=== PATIENT | female | born 1985 | race American Indian/Alaskan Native ===

== ENCOUNTER 2017-06-26 05:45 | Inpatient (IN) | payer MEDICAID ==
--- NOTE | 2017-06-25 21:55 | History and Physical Report ---
History of Present Illness Date of examination: 06/23/17 Chief complaint: Repeat delivery History of present illness: Past History : 5 Term Births: 3 Premature Births: 1 Living Children: 4 Para: 4 Prev : 1 # 1 Delivery date: 1999 Weeks Gestation: 32w labor: no Delivery type: Delivery location: [facility] Sex: Female weight: 5#12 Comments: abruption # 2 Delivery date: 2000 Weeks Gestation: term labor: no [place] [facility] [place] Male weight: 7#12 # 3 Delivery date: 2004 Weeks Gestation: term labor: no Delivery [place]: [place] [facility] [place]: Male weight: 7# # 4 Delivery date: 2004 Weeks Gestation: term labor: no Delivery type: [place] [facility] [place] Sex: Male weight: 6# Past Medical History: Abnormal Pap Smear - 13 years ago (no pap in 12 years) anxiety - stopped taking paxil Past Surgical History: 1999 Past Medical History Surgery (Non-engineering systems analyst): 1999 Abnormal PAP: positive, 13 years ago JASKARAN Exposure: negative Infertility: negative Uterine Anomaly: negative Uterine Surgery (not C/S): negative Other Gynecologic Problems: negative Infection History Hx of STD: none HIV Risk Eval: no Hepatitis B Risk Eval: low risk Personal hx. of genital herpes: no Partner hx. of genital herpes: no Rash, Viral, or Febrile illness since last LMP? no Varicella/Chicken Pox Status: Previous Disease TB Risk: no Genetic History Congenital Heart Defect: Mom: no Dad: no Anastasia Disease: Mom: no Dad: no Thalassemia Mom: no Dad: no Neural Tube Defect Mom: no Dad: no Down's Syndrome Mom: no Dad: no Jasper-Sachs Mom: no Dad: no Sickle Cell Disease/Trait Mom: no Dad: no Hemophilia Mom: no Dad: no Muscular Dystrophy Mom: no Dad: no Cystic Fibrosis Mom: no Dad: no Suad Chorea Mom: no Dad: no Mental Retardation Mom: no Dad: no Fragile X Mom: no Dad: no Other Genetic/Chromosomal Disorder Mom: no Dad: no Child w/other defect Mom: no Dad: no Enviromental Exposures Xray Exposure: no Medication, drug, or alcohol use since LMP: no Chemical/Other Exposure: no Exposure to Cat Liter: no Hx of Parvovirus (Fifth Disease): no Occupational Exposure to Children: none Past History - Obstetrical History Expected Date of Delivery: 06/30/17 Actual Gestation: 39 Week(s) 2 Day(s) Review of Systems All systems: negative - Physical Exam Breasts: Positive: deferred Cardiovascular: Regular rate Lungs: Positive: Clear to auscultation Abdomen: Positive: normal appearance Uterus: Positive: enlarged Extremities: Positive: normal Deep Tendon Reflex Grade: Absent 0 Results All other labs normal. Assessment and Plan - Patient Problems (1) 39 weeks gestation of Status: Acute (2) Maternal care for scar from previous delivery Status: Acute Plan to address problem: Desires repeat c/s
[~2017-06-26 05:45] MED LIST: ANCEF/STERILE WATER 2 GM/20 ML 2 GM/20 ML SYRINGE IV NR; BICITRA PO NR; LACTATED RINGERS 1,000 ML IV SCH; PITOCin/NS 20 UNIT/1000ML DRIP 20 UNITS/1,000 ML BAG IV SCH; REGLAN IV NR
[2017-06-26] MEDS ORDERED: PEPCID IV NR (07:00)
[2017-06-26] MEDS: LACTATED RINGERS 1,000 ML IV SCH ×2 (07:27→07:28)
[2017-06-26 07:28] LABS: Hematocrit 35.1 % (30.3-42.9); Hemoglobin 11.5 gm/dl (10.1-14.3); Mean Corpuscular HGB Conc 33 % (30-34); Mean Corpuscular Hemoglobin 31 pg (28-32); Mean Corpuscular Volume 95 fl (79-97); Platelet Count 314 K/mm3 (140-440); Red Blood Count 3.71 M/mm3 (3.65-5.03); Red Cell Distribution Width 14.7 % (13.2-15.2); White Blood Count 5.8 K/mm3 (4.5-11.0)
--- NOTE | 2017-06-26 07:30 | Anesthesia Day of Surgery ---
Anesthesia Day of Surgery - Day of Surgery Patient Examined: Yes Patient H&P Reviewed: Yes Patient is NPO: Yes
--- NOTE | 2017-06-26 07:30 | Anesthesia Consultation ---
Anesthesia Consult and Med Hx Date of service: 06/26/17 - Airway Anesthetic Teeth Evaluation: Good ROM Head & Neck: Adequate Mental/Hyoid Distance: Adequate Mallampati Class: Class II Intubation Access Assessment: Probably Good - Pre-Operative Health Status ASA Pre-Surgery Classification: ASA2 Proposed Anesthetic Plan: Spinal - Pulmonary Hx Asthma: No COPD: No Hx Pneumonia: No - Cardiovascular System Hx Hypertension: No - Central Nervous System Hx Seizures: No Hx Psychiatric Problems: Yes (anxiety disorder) - Endocrine Hx Renal Disease: No Hx End Stage Renal Disease: No Hx Hypothyroidism: No Hx Hyperthyroidism: No - Hematic Hx Anemia: Yes Hx Sickle Cell Disease: No - Other Systems Hx Alcohol Use: No
[2017-06-26] MEDS ORDERED: WATER FOR IRRIG STERILE IR ONE (07:50)
[2017-06-26] MEDS ORDERED: NACL 0.9% IR ONE (07:50)
[2017-06-26] MEDS ORDERED: BENADRYL IV PRN (08:00)
[2017-06-26] MEDS ORDERED: TORADOL IV PRN (08:00)
[2017-06-26] MEDS ORDERED: ZOFRAN IV PRN (08:00)
[2017-06-26] MEDS ORDERED: PHENERGAN PR PRN (08:00)
[2017-06-26] MEDS ORDERED: PHENERGAN PO PRN (08:00)
[2017-06-26] MEDS ORDERED: NARCAN 0.4 MG/1 ML IV PRN (08:00)
[2017-06-26] MEDS ORDERED: MORPHINE ONE (08:00)
[2017-06-26] MEDS ORDERED: MORPHINE IV PRN ×3 (08:00→11:04)
[2017-06-26] MEDS ORDERED: SODIUM CHLORIDE FLUSH SYRINGE 10 ML IV PRN (08:00)
[2017-06-26] MEDS ORDERED: NACL 0.9% 1000 ML 1,000 ML ONE ×3 (08:20→11:13)
[2017-06-26] MEDS ORDERED: NEO SYNEPHRINE/NS Syringe(OR USE) IV ONE ×2 (08:21→12:43)
[2017-06-26] MEDS ORDERED: ZOFRAN ONE (09:01)
--- NOTE | 2017-06-26 09:25 | Operative Report ---
Operative Report Operative Report: Date: 06/26/2017 Preoperative diagnosis: 1. Intrauterine at 39 weeks 2. Previous delivery desires repeat 3. Positive anti-Uriel antibody Postoperative diagnosis: 1. Intrauterine at 39 weeks 2. Previous delivery desires repeat 3. Positive anti-Uriel antibody Procedure: Low uterine transverse incision for delivery Surgeon: Inna Hendricks MD Oil Heater Installer: Anu Johnson Anesthesia: Spinal Anesthesiologist: [] Estimated blood loss: 600 mL Urine out: 50 mL Findings: Live born male . Weight 7 lbs. 15 oz. Apgars 8 at 1 minute and 9 at 9 minutes. Grossly normal tubes and ovaries. Enlarged uterus secondary to uterine fibroids. Procedure: After risk, benefits, complications, consequences and alternatives for this procedure were discussed with patient and consents were reviewed and signed, she was taken to the OR where spinal anesthesia was placed. She was then placed in the left lateral tilt position, and prepped and draped in the usual sterile fashion. Timeout was performed, and an appropriate level of anesthesia was noted, a Pfannenstiel incision was made and extended to the fascia which was incised and extended in the lateral directions. The overlying fascia was sharply dissected away from the underlying rectus muscles in the superior and inferior directions. The midline was entered bluntly. The vesicouterine fold was incised and with blunt dissection the bladder flap was created. A transverse incision was made in the lower uterine segment and extended in superiolateral direction with finger fractionation. Clear fluid was noted. The infant was delivered from cephalic position. Mouth and nose were bulb suctioned. Spontaneous cry and excellent tone were noted. Cord was doubly clamped and cut. The was given to /resuscitation team present. The placenta was manually extracted. The uterus was then exteriorized and cleared of any further products of conception or placental tissue. The incision was reapproximated using 0 Vicryl in a running interlocking stitch. Once hemostasis was noted, the uterus was allowed back into the pelvic cavity. The pelvis was irrigated with warm normal saline. Again hemostasis was noted . Tisseel applied for further hemostasis. Interceed was then placed to prevent adhesions. Then attention was turned to the rectus muscles. Rectus muscles were reapproximated using 0 Vicryl interrupteds simple stitch 3. Once hemostasis was noted, The fascia was reapproximated using 0 Vicryl running stitch. Once hemostasis was noted skin incision was reapproximated using 4-0 Vicryl on a French needle in a subcuticular manner. Counts were correct 3. Patient tolerated procedure well state recovery room in stable condition.
[2017-06-26] MEDS ORDERED: METHERGINE IM ONE (10:34)
[2017-06-26] MEDS ORDERED: CYTOTEC ONE (10:47)
[2017-06-26] MEDS ORDERED: HEMABATE IM ONE ×2 (10:47→11:18)
[2017-06-26] MEDS ORDERED: NACL 0.9% 500 ML 500 ML IV SCH ×3 (11:02→12:23)
[2017-06-26] MEDS ORDERED: MYLICON PO PRN (11:04)
[2017-06-26] MEDS ORDERED: LANSINOH TP PRN (11:04)
[2017-06-26] MEDS ORDERED: PERCOCET 5/325 PO PRN (11:04)
[2017-06-26] MEDS ORDERED: MOTRIN PO PRN (11:04)
[2017-06-26] MEDS ORDERED: ANCEF/NS 1 GM/50 ML 1 GM/50 ML BAG IV SCH ×2 (11:04→14:32)
[2017-06-26] MEDS ORDERED: TUCKS PAD TP PRN (11:04)
[2017-06-26] MEDS ORDERED: MILK OF MAGNESIA PO PRN (11:04)
[2017-06-26] MEDS ORDERED: TYLENOL PO PRN (11:04)
[2017-06-26] MEDS ORDERED: D5LR 1,000 ML IV SCH (11:04)
[2017-06-26] MEDS ORDERED: CYTOTEC PR ONE (11:30)
[2017-06-26] MEDS ORDERED: PITOCin/NS 20 UNIT/1000ML DRIP 20 UNITS/1,000 ML BAG IV SCH ×2 (11:30→12:00)
[2017-06-26] MEDS ORDERED: NACL 0.9% IV SCH (11:30)
[2017-06-26] MEDS ORDERED: NACL 0.9% 1000 ML 2,000 ML ONE ×2 (11:36→11:55)
[2017-06-26] MEDS ORDERED: ePHEDrine SULFATE ONE (11:40)
[2017-06-26] MEDS ORDERED: BREVIBLOC IV ONE (12:23)
[2017-06-26 12:32] LABS: Hematocrit 28.3 % (30.3-42.9); Hemoglobin 8.8 gm/dl (10.1-14.3); Mean Corpuscular HGB Conc 31 % (30-34); Mean Corpuscular Hemoglobin 30 pg (28-32); Mean Corpuscular Volume 97 fl (79-97); Platelet Count 255 K/mm3 (140-440); Red Blood Count 2.91 M/mm3 (3.65-5.03); Red Cell Distribution Width 18.3 % (13.2-15.2); White Blood Count 17.3 K/mm3 (4.5-11.0)
[2017-06-26 12:43] LABS: INR 1.26 (0.87-1.13)
[2017-06-26 12:44] LABS: Partial Thromboplastin Time 30.9 Sec. (24.2-36.6)
[2017-06-26 13:17] LABS: Alanine Aminotransferase 6 units/L (7-56); Albumin 2.3 g/dL (3.9-5); Albumin/Globulin Ratio 0.8 %; Alkaline Phosphatase 114 units/L (35-129); Anion Gap 25 mmol/L; BUN/Creatinine Ratio 10; Blood Urea Nitrogen 5 mg/dL (7-17); Carbon Dioxide 12 mmol/L (22-30); Chloride 107.5 mmol/L (98-107); Glucose 164 mg/dL (65-100); Potassium 4.3 mmol/L (3.6-5.0); Sodium 140 mmol/L (137-145); Total Protein 5.2 g/dL (6.3-8.2)
[2017-06-26] MEDS ORDERED: LOMOTIL PO PRN (14:10)
--- NOTE | 2017-06-26 14:10 | Event Note ---
Date: 06/26/17 Called to L&D PACU by RN and manager community outreach to assess patient for vaginal bleeding. Arrived ~5minutes later, patient was alert and appropriately responsive complained of feeling cold and she was visibly shaking. Per RN she had received Methergine 0.2mg IM and Pitocin 40u was infusing. Fundus was significantly above her umbilicus with moderate bleeding from her vagina with fundal massage. She was given Hemabate 250mcg IM and Cytotec 1000mcg CO was placed. Second IV, PRBC's/FFP and blood work were ordered. Approximately 1500mL of blood and clots were manually removed from the lower uterine segment and vagina, bleeding immediately improved. Vital signs were difficult to assess d/t shaking however she remained appropriately responsive with O2 saturation greater than 95% when able to register. The Freya hugger and warm blankets were placed on the patient. The manager community development and a second RN arrived to assist. The second IV access was obtained and NS bolus was given. Further small clots with bleeding was noted and her fundus had decreased in size, however a second dose of Hemabate 250mcg IM was given. Blood was not able to be collected when the IV was placed and a structural fitter arrived to attempt to obtain the ordered labs. According to the blood bank, it would take approximately 45minutes to have PRBCs available due to identifying an antibody. Vital signs continued to be difficulty to assess and appeared to be deteriorating therefore emergency release PRBC's were ordered. Fundus was firm and no vaginal bleeding occurred with fundal massage. Although she remained responsive(she actually spoke with her mother by cellphone) and the first unit of PRBC's were infusing, vital signs were still difficult to obtain and appeared unstable,therefore a code met was called and support arrived promptly. Blood was obtained for labs, additional vasopressors were given by anesthesia. Scant bleeding was noted with uterine massage. Once her vital signs weer stabilized, she was transferred to CCU. In CCU, still with no bleeding with fundal massage, she remained alert, stated she felt much better and requested ice chips.
[2017-06-26] MEDS ORDERED: REGLAN IV PRN (14:32)
[2017-06-26] MEDS ORDERED: DULCOLAX PR PRN (14:32)
[2017-06-26] MEDS ORDERED: SODIUM CHLORIDE FLUSH SYRINGE 10 ML IV NR (14:32)
[2017-06-26] MEDS ORDERED: TYLENOL PR PRN (14:32)
[2017-06-26] MEDS ORDERED: ALUM-MAG HYDROX-SIMETH 200-200-20MG/5ML PO PRN (14:32)
[2017-06-26] MEDS: ceFAZolin 1 GM in NACL 0.9% 20 ML IV SCH (15:36)
[2017-06-26 18:16] LABS: Basophils % (Auto) 0.2 % (0.0-1.8); Hematocrit 26.8 % (30.3-42.9); Hemoglobin 9.1 gm/dl (10.1-14.3); Mean Corpuscular HGB Conc 34 % (30-34); Mean Corpuscular Hemoglobin 30 pg (28-32); Mean Corpuscular Volume 88 fl (79-97); Platelet Count 171 K/mm3 (140-440); Red Blood Count 3.03 M/mm3 (3.65-5.03); Red Cell Distribution Width 17.2 % (13.2-15.2); White Blood Count 10.6 K/mm3 (4.5-11.0)
[2017-06-26 18:26] LABS: INR 1.06 (0.87-1.13)
[2017-06-26 18:27] LABS: Partial Thromboplastin Time 28.4 Sec. (24.2-36.6)
[2017-06-26 18:40] LABS: Alanine Aminotransferase 9 units/L (7-56); Albumin 2.7 g/dL (3.9-5); Alkaline Phosphatase 105 units/L (35-129); Anion Gap 19 mmol/L; BUN/Creatinine Ratio 10; Blood Urea Nitrogen 5 mg/dL (7-17); Calcium 7.3 mg/dL (8.4-10.2); Carbon Dioxide 18 mmol/L (22-30); Glucose 79 mg/dL (65-100); Sodium 141 mmol/L (137-145); Total Protein 5.4 g/dL (6.3-8.2)
[2017-06-26] MEDS: METHERGINE IM SCH ×2 (19:07→23:22)
[2017-06-26] MEDS: PEPCID IV SCH (21:29)
[2017-06-26] MEDS: NACL 0.9% 1000 ML 1,000 ML IV SCH (21:29)
[2017-06-26] MEDS: XANAX PO PRN (22:35)
--- NOTE | 2017-06-27 01:07 | Progress Note ---
Assessment and Plan - Patient Problems (1) 39 weeks gestation of Current Visit: Yes Status: Acute (2) Maternal care for scar from previous delivery Current Visit: Yes Status: Acute (3) hemorrhage Current Visit: Yes Status: Acute Plan to address problem: Patient is stable, will consider transferring to M/B in am Subjective - Subjective Date of service: 06/27/17 Principal diagnosis: POD#1 C/S with PPH Interval history: Alert, complains of itching, thinks she was bitten by something at her house, otherwise she feels much better Objective - Vital Signs Latest vital signs: Vital Signs Temp Pulse Pulse Resp BP Pulse Ox 06/27/17 00:00 89 18 100 06/26/17 20:00 100.6 F H 96 H 18 100 06/26/17 16:10 58 L 9 L 94/39 98 06/26/17 16:01 63 9 L 06/26/17 16:00 99.1 F 06/26/17 14:54 98.3 F 97 H 22 118/76 99 06/26/17 14:30 98.3 F 104 H 18 127/70 98 06/26/17 14:15 98.4 F 104 H 18 126/56 98 06/26/17 14:00 98.4 F 104 H 21 126/66 98 06/26/17 13:45 98.4 F 119 H 15 113/65 98 06/26/17 13:30 99.4 F 124 H 21 123/63 97 06/26/17 13:15 99.4 F 123 H 22 129/64 97 06/26/17 13:12 130/88 92 06/26/17 13:00 99.4 F 127 H 22 120/68 92 06/26/17 12:57 102.4 F H 06/26/17 12:50 130/88 90 06/26/17 12:42 130/88 95 06/26/17 12:35 135 H 30 H 130/88 06/26/17 12:34 138 H 30 H 126/80 96 06/26/17 12:30 148 H 18 134/79 96 06/26/17 12:28 159 H 14 134/79 98 06/26/17 12:22 172 H 24 109/94 98 06/26/17 12:20 167 H 28 H 109/94 99 06/26/17 12:17 29 H 109/94 100 06/26/17 12:12 135 H 21 59/32 93 06/26/17 12:10 190 H 17 59/32 81 L 06/26/17 12:06 182 H 18 59/32 74 L 06/26/17 12:00 188 H 18 59/32 84 06/26/17 11:58 198 H 18 59/32 88 06/26/17 11:52 189 H 25 H 81/58 68 L 06/26/17 11:50 186 H 20 81/58 72 L 06/26/17 11:47 185 H 29 H 81/58 100 06/26/17 11:42 183 H 20 50/29 100 06/26/17 11:40 183 H 25 H 50/29 78 L 06/26/17 11:36 50/29 68 L 06/26/17 11:30 181 H 36 H 83/66 06/26/17 11:24 26 H 213/133 99 06/26/17 11:20 170 H 15 213/133 99 06/26/17 11:18 173 H 22 213/133 99 06/26/17 11:12 162 H 19 213/133 99 06/26/17 11:10 20 213/133 98 06/26/17 11:06 133 H 16 213/133 100 06/26/17 11:00 127 H 16 140/75 100 06/26/17 10:55 131/87 100 06/26/17 10:50 121/87 100 06/26/17 10:45 129/93 06/26/17 10:15 163 H 20 129/86 100 06/26/17 10:10 152 H 21 126/87 100 06/26/17 10:05 141 H 19 122/94 06/26/17 10:00 121 H 15 116/92 06/26/17 09:55 112 H 26 H 127/96 100 06/26/17 09:50 107 H 15 133/95 100 06/26/17 09:45 109 H 15 133/91 100 06/26/17 09:40 109 H 16 141/87 100 06/26/17 09:35 110 H 19 135/92 100 06/26/17 09:30 137 H 22 115/93 06/26/17 09:25 112 H 15 135/87 100 06/26/17 09:20 116 H 20 132/83 100 06/26/17 09:14 129 H 15 128/74 100 06/26/17 09:12 97.6 F 130 H 16 128/74 100 06/26/17 07:05 98.2 F 18 06/26/17 06:41 98 H 100 06/26/17 06:37 114 H 139/83 06/26/17 06:36 99 H 82 L Intake and Output 06/26/17 06/26/17 06/27/17 14:59 22:59 06:59 Intake Total 1574.5 0 Output Total 150 1000 Balance 1424.5 -1000 Intake: IV 1337.5 Lactated Ringers 1,000 ml 37.5 @ 2250 mls/hr IV [facility] Rx#:[id number] Blood Product 237 0 Cryoprecipitate Thawed 0 Unit [id number] Fresh Frozen Plasma 237 Thawed Unit [id number] Output: Urine 150 1000 Indwelling Catheter 1000 Other: Total, Output Amount 1000 Voiding Method Indwelling Catheter Indwelling Catheter Indwelling Catheter Estimated Blood Loss 600 - Exam Vulva: both: normal (appropriate blood in pad, no active bleeding) - Labs Labs: Abnormal lab results 06/26/17 06/26/17 06/26/17 Range/Units 06:11 12:29 12:29 WBC 17.3 H (4.5-11.0) K/mm3 RBC 2.91 L (3.65-5.03) M/mm3 Hgb 8.8 L (10.1-14.3) gm/dl Hct 28.3 L D (30.3-42.9) % RDW 18.3 H (13.2-15.2) % Lymph % (Auto) (13.4-35.0) % Lymph # (1.2-5.4) K/mm3 Seg Neutrophils % (40.0-70.0) % Seg Neutrophils # (1.8-7.7) K/mm3 PT 16.5 H (12.2-14.9) Sec. INR 1.26 H (0.87-1.13) Chloride (98-107) mmol/L Carbon Dioxide (22-30) mmol/L BUN (7-17) mg/dL Creatinine (0.7-1.2) mg/dL Glucose (65-100) mg/dL Calcium (8.4-10.2) mg/dL Total Bilirubin (0.1-1.2) mg/dL ALT (7-56) units/L Total Protein (6.3-8.2) g/dL Albumin (3.9-5) g/dL Crossmatch Prewarmed See Detail 06/26/17 06/26/17 06/26/17 Range/Units 12:40 17:53 17:53 WBC (4.5-11.0) K/mm3 RBC 3.03 L (3.65-5.03) M/mm3 Hgb 9.1 L (10.1-14.3) gm/dl Hct 26.8 L (30.3-42.9) % RDW 17.2 H (13.2-15.2) % Lymph % (Auto) 10.4 L (13.4-35.0) % Lymph # 1.1 L (1.2-5.4) K/mm3 Seg Neutrophils % 83.8 H (40.0-70.0) % Seg Neutrophils # 8.9 H (1.8-7.7) K/mm3 PT (12.2-14.9) Sec. INR (0.87-1.13) Chloride 107.5 H 108.0 H (98-107) mmol/L Carbon Dioxide 12 L 18 L (22-30) mmol/L BUN 5 L 5 L (7-17) mg/dL Creatinine 0.5 L 0.5 L (0.7-1.2) mg/dL Glucose 164 H (65-100) mg/dL Calcium 7.0 L 7.3 L (8.4-10.2) mg/dL Total Bilirubin 1.40 H (0.1-1.2) mg/dL ALT 6 L (7-56) units/L Total Protein 5.2 L 5.4 L (6.3-8.2) g/dL Albumin 2.3 L 2.7 L (3.9-5) g/dL Crossmatch Prewarmed
[2017-06-27] MEDS: ceFAZolin 1 GM in NACL 0.9% 20 ML IV SCH (04:29)
[2017-06-27] MEDS: NACL 0.9% 1000 ML 1,000 ML IV SCH ×3 (04:59→21:10)
[2017-06-27] MEDS: METHERGINE IM SCH ×2 (05:00→11:35)
[2017-06-27 05:25] LABS: Alanine Aminotransferase 8 units/L (7-56); Albumin 2.2 g/dL (3.9-5); Albumin/Globulin Ratio 0.8 %; Alkaline Phosphatase 88 units/L (35-129); Anion Gap 17 mmol/L; BUN/Creatinine Ratio 8; Basophils % (Auto) 0.5 % (0.0-1.8); Blood Urea Nitrogen 3 mg/dL (7-17); Calcium 7.7 mg/dL (8.4-10.2); Carbon Dioxide 18 mmol/L (22-30); Chloride 104.1 mmol/L (98-107); Eosinophils % (Auto) 0.1 % (0.0-4.3); Glucose 68 mg/dL (65-100); Hematocrit 23.4 % (30.3-42.9); Mean Corpuscular HGB Conc 34 % (30-34); Mean Corpuscular Hemoglobin 30 pg (28-32); Mean Corpuscular Volume 89 fl (79-97); Platelet Count 156 K/mm3 (140-440); Potassium 3.5 mmol/L (3.6-5.0); Red Blood Count 2.64 M/mm3 (3.65-5.03); Red Cell Distribution Width 18.2 % (13.2-15.2); Sodium 136 mmol/L (137-145); White Blood Count 9.4 K/mm3 (4.5-11.0)
--- NOTE | 2017-06-27 05:38 | Consultation ---
History of Present Illness - Reason for Consult Consult date: 06/27/17 Vaginal Bleed Requesting physician: REGI HENDRICKS - History of Present Illness 32 y/o female, status post delivery who experienced vaginal bleed post -op and relative hypotension. Called by OB for admission to ICU for closer monitoring. Given 3 units of PRBC's, 2 of FFP;s and 1 of cryo. Patient transitioned to ICU. patient continues to bleed overnight. HgB this am is only 8.0 Was 8.8 after surgery on yesterday. Tech states that she has been changed 3x times tonight with bloody diapers. Vital signs are stable though. Past History Past Surgical History: Social history: Family history: no significant family history Medications and Allergies Allergies Allergy/AdvReac Type Severity Reaction Status Date / Time No Known Allergies Allergy Unverified 06/26/17 06:17 Home Medications Medication Instructions Recorded Confirmed Last Taken Type Ibuprofen [Motrin 800 MG tab] 800 mg PO TID PRN #30 tablet 06/26/17 Unknown Rx Lidocain2.5%/Prilocai2.5% [Emla] 5 gm TP ONCE #1 tube 06/26/17 Unknown Rx oxyCODONE /ACETAMINOPHEN [Percocet 1 - 2 tab PO Q4HR PRN #30 tablet 06/26/17 Unknown Rx 5/325 mg] Active Meds: Active Medications Acetaminophen (Tylenol) 650 mg PO Q6H PRN PRN Reason: Fever >100.5/BERMAN Acetaminophen (Tylenol) 650 mg NE Q6H PRN PRN Reason: Pain MILD(1-3)/Fever >100.5/BERMAN Al Hydrox/Mg Hydrox/Simethicone (Alum-Mag Hydrox-Simeth [phone]/5ml) 30 ml PO Q4H PRN PRN Reason: Indigestion Alprazolam (Xanax) 0.25 mg PO Q8H PRN PRN Reason: Anxiety Last Admin: 06/26/17 22:35 Dose: 0.25 mg Bisacodyl (Dulcolax) 10 mg NE QDAY PRN PRN Reason: constipation unrelieved by MOM Diphenhydramine HCl (Benadryl) 12.5 mg IV Q2H PRN PRN Reason: Itching Last Admin: 06/27/17 01:06 Dose: 12.5 mg Diphenoxylate HCl/Atropine (Lomotil) 1 tab PO Q6H PRN PRN Reason: Diarrhea Diphtheria/Tetanus/Acell Pertussis (Boostrix) 0.5 ml IM .ONCE ONE Stop: 06/27/17 06:01 Famotidine (Pepcid) 20 mg IV BID RAJESH Last Admin: 06/26/17 21:29 Dose: 20 mg Sodium Chloride (Nacl 0.9% 500 Ml) 500 mls @ 0 mls/hr IV ONCE RAJESH PRN Reason: As Directed Sodium Chloride (Nacl 0.9% 1000 Ml) 1,000 mls @ 125 mls/hr IV DIRECT RAJESH Last Admin: 06/27/17 04:59 Dose: 125 mls/hr Influenza Virus Vaccine Quadrival (Fluarix Quad [id number](36 Mos+) 0.5 ml IM .ONCE ONE Stop: 06/27/17 12:01 Magnesium Hydroxide (Milk Of Magnesia) 30 ml PO QHS PRN PRN Reason: Constip Unrelieved By Senna Methylergonovine Maleate (Methergine) 0.2 mg IM Q6HR [facility] Stop: 06/27/17 12:01 Last Admin: 06/27/17 05:00 Dose: 0.2 mg Metoclopramide HCl (Reglan) 10 mg IV Q6H PRN PRN Reason: Nausea And Vomiting Morphine Sulfate (Morphine) 2 mg IV Q4H PRN PRN Reason: Pain, Moderate (4-6) Morphine Sulfate (Morphine) 4 mg IV Q4H PRN PRN Reason: Pain , Severe (7-10) Multi-Ingredient Ointment (Lansinoh) 1 applic TP PRN PRN PRN Reason: dryness/cracking Naloxone HCl (Narcan 0.4 Mg/1 Ml) 0.2 mg IV Q2MIN PRN PRN Reason: Res Rate </= 8 or 02 SAT < 92% Ondansetron HCl (Zofran) 4 mg IV Q8H PRN PRN Reason: Nausea And Vomiting Promethazine HCl (Phenergan) 25 mg NE Q6H PRN PRN Reason: Nausea And Vomiting Simethicone (Mylicon) 80 mg PO Q6H PRN PRN Reason: Gas pain Last Admin: 06/26/17 22:34 Dose: 80 mg Sodium Chloride (Sodium Chloride Flush Syringe 10 Ml) 10 ml IV PRN NR Stop: 06/27/17 14:31 Sodium Chloride (Nacl 0.9%) 1,000 ml IV DIRECT RAJESH Stop: 06/29/17 11:31 Witch Carlene/Glycerin (Tucks Pad) 1 each TP PRN PRN PRN Reason: Hemorrhoids/cleansing/soothing Review of Systems All systems: negative Exam - Constitutional Vitals: Temp Pulse Resp BP Pulse Ox 98.0 F 89 18 112/66 100 06/27/17 04:00 06/27/17 04:01 06/27/17 04:01 06/27/17 03:50 06/27/17 04:01 General appearance: Present: no acute distress, well-nourished - EENT Eyes: Present: PERRL, EOM intact ENT: hearing intact, clear oral mucosa, dentition normal - Neck Neck: Present: supple, normal ROM - Respiratory Respiratory effort: normal Respiratory: bilateral: CTA - Cardiovascular Rhythm: regular Heart Sounds: Present: S1 & S2 - Extremities Extremities: no ischemia - Abdominal General gastrointestinal: Present: other (post surgical) Female genitourinary: Present: deferred - Rectal Rectal Exam: deferred - Integumentary Integumentary: Present: clear, warm, dry Results - Labs CBC & Chem 7: 06/27/17 04:23 06/27/17 04:23 Labs: Abnormal lab results 06/26/17 06/26/17 06/26/17 Range/Units 06:11 12:29 12:29 WBC 17.3 H (4.5-11.0) K/mm3 RBC 2.91 L (3.65-5.03) M/mm3 Hgb 8.8 L (10.1-14.3) gm/dl Hct 28.3 L D (30.3-42.9) % RDW 18.3 H (13.2-15.2) % Lymph % (Auto) (13.4-35.0) % Lymph # (1.2-5.4) K/mm3 Seg Neutrophils % (40.0-70.0) % Seg Neutrophils # (1.8-7.7) K/mm3 PT 16.5 H (12.2-14.9) Sec. INR 1.26 H (0.87-1.13) Sodium (137-145) mmol/L Potassium (3.6-5.0) mmol/L Chloride (98-107) mmol/L Carbon Dioxide (22-30) mmol/L BUN (7-17) mg/dL Creatinine (0.7-1.2) mg/dL Glucose (65-100) mg/dL Calcium (8.4-10.2) mg/dL Total Bilirubin (0.1-1.2) mg/dL ALT (7-56) units/L Total Protein (6.3-8.2) g/dL Albumin (3.9-5) g/dL Crossmatch Prewarmed See Detail 06/26/17 06/26/17 06/26/17 Range/Units 12:40 17:53 17:53 WBC (4.5-11.0) K/mm3 RBC 3.03 L (3.65-5.03) M/mm3 Hgb 9.1 L (10.1-14.3) gm/dl Hct 26.8 L (30.3-42.9) % RDW 17.2 H (13.2-15.2) % Lymph % (Auto) 10.4 L (13.4-35.0) % Lymph # 1.1 L (1.2-5.4) K/mm3 Seg Neutrophils % 83.8 H (40.0-70.0) % Seg Neutrophils # 8.9 H (1.8-7.7) K/mm3 PT (12.2-14.9) Sec. INR (0.87-1.13) Sodium (137-145) mmol/L Potassium (3.6-5.0) mmol/L Chloride 107.5 H 108.0 H (98-107) mmol/L Carbon Dioxide 12 L 18 L (22-30) mmol/L BUN 5 L 5 L (7-17) mg/dL Creatinine 0.5 L 0.5 L (0.7-1.2) mg/dL Glucose 164 H (65-100) mg/dL Calcium 7.0 L 7.3 L (8.4-10.2) mg/dL Total Bilirubin 1.40 H (0.1-1.2) mg/dL ALT 6 L (7-56) units/L Total Protein 5.2 L 5.4 L (6.3-8.2) g/dL Albumin 2.3 L 2.7 L (3.9-5) g/dL Crossmatch Prewarmed 06/27/17 06/27/17 Range/Units 04:23 04:23 WBC (4.5-11.0) K/mm3 RBC 2.64 L (3.65-5.03) M/mm3 Hgb 8.0 L (10.1-14.3) gm/dl Hct 23.4 L (30.3-42.9) % RDW 18.2 H (13.2-15.2) % Lymph % (Auto) (13.4-35.0) % Lymph # (1.2-5.4) K/mm3 Seg Neutrophils % 80.2 H (40.0-70.0) % Seg Neutrophils # (1.8-7.7) K/mm3 PT (12.2-14.9) Sec. INR (0.87-1.13) Sodium 136 L (137-145) mmol/L Potassium 3.5 L (3.6-5.0) mmol/L Chloride (98-107) mmol/L Carbon Dioxide 18 L (22-30) mmol/L BUN 3 L (7-17) mg/dL Creatinine 0.4 L (0.7-1.2) mg/dL Glucose (65-100) mg/dL Calcium 7.7 L (8.4-10.2) mg/dL Total Bilirubin (0.1-1.2) mg/dL ALT (7-56) units/L Total Protein 5.0 L (6.3-8.2) g/dL Albumin 2.2 L (3.9-5) g/dL Crossmatch Prewarmed Assessment and Plan 32 y/o female status post now with vaginal bleeding. 1. Reviewed chart. Dr. Hendricks, felt that patient is stable and hemodynamically she is, but my concern is that after 3 units of PRBC's her HgB has not changed. I would be more inclined to continue ICU monitoring with serial H/H check's and transfusion of blood for HgB less than 7 or hypotension. Will discuss with OB attending. If they feel that she is stable have no objections with them. If not will do the following: obtain H/H q6 hours at least for the next [address] of abdomen is warranted. CCt 31 minutes
[2017-06-27] MEDS ORDERED: BOOSTRIX IM ONE (06:00)
[2017-06-27] MEDS: XANAX PO PRN (06:03)
[2017-06-27 06:48] LABS: Basophils % (Auto) 0.6 % (0.0-1.8); Eosinophils % (Auto) 0.1 % (0.0-4.3); Hematocrit 25.2 % (30.3-42.9); Hemoglobin 8.6 gm/dl (10.1-14.3); Mean Corpuscular HGB Conc 34 % (30-34); Mean Corpuscular Hemoglobin 30 pg (28-32); Mean Corpuscular Volume 89 fl (79-97); Platelet Count 162 K/mm3 (140-440); Red Blood Count 2.83 M/mm3 (3.65-5.03); White Blood Count 9.5 K/mm3 (4.5-11.0)
[2017-06-27] MEDS ORDERED: NORCO 5/325 PO PRN (09:43)
--- NOTE | 2017-06-27 10:01 | Progress Note ---
Assessment and Plan - Patient Problems (1) hemorrhage Current Visit: No Status: Acute Qualifiers: hemorrhage type: secondary hemorrhage Qualified Code( s): O72.2 - Delayed and secondary hemorrhage Plan to address problem: Patient presently ICU hemoglobin at 0400 was 8.0 repeat approximately 6 AM was 8.5. Appreciate Dr. Thurston assistance Will do serial H&H and follow the patient 's progression. Subjective Date of service: 06/27/17 (ICU note) Principal diagnosis: POD#1 C/S with PPH Interval history: Patient with a slight increase in her hemoglobin and hematocrit patient is alert without orthostatic symptoms at this time but she is in the ICU and did review Dr. Thurston note Objective - Constitutional Vitals: Vital Signs - 12hr 06/26/17 06/26/17 06/26/17 22:00 22:10 22:20 Temperature Pulse Rate 89 88 85 Pulse Rate [ From Monitor] Respiratory 16 20 21 Rate Blood Pressure 100/47 100/47 107/47 O2 Sat by Pulse 97 100 100 Oximetry 06/26/17 06/26/17 06/26/17 22:30 22:40 22:50 Temperature Pulse Rate 84 92 H 86 Pulse Rate [ From Monitor] Respiratory 21 14 15 Rate Blood Pressure 117/68 117/68 120/64 O2 Sat by Pulse 99 98 99 Oximetry 06/26/17 06/26/17 06/26/17 23:00 23:10 23:20 Temperature Pulse Rate 101 H 105 H 100 H Pulse Rate [ From Monitor] Respiratory 16 19 19 Rate Blood Pressure 120/64 139/58 139/58 O2 Sat by Pulse 100 99 98 Oximetry 06/26/17 06/26/17 06/26/17 23:30 23:40 23:50 Temperature Pulse Rate 89 95 H 84 Pulse Rate [ From Monitor] Respiratory 26 H 21 20 Rate Blood Pressure 139/58 139/58 139/58 O2 Sat by Pulse 100 97 98 Oximetry 06/27/17 06/27/17 06/27/17 00:00 00:09 00:10 Temperature 98.7 F Pulse Rate 93 H 93 H Pulse Rate [ 89 From Monitor] Respiratory 21 15 Rate Blood Pressure 116/65 116/65 O2 Sat by Pulse 97 95 Oximetry 06/27/17 06/27/17 06/27/17 00:20 00:30 00:40 Temperature Pulse Rate 81 99 H 80 Pulse Rate [ From Monitor] Respiratory 18 15 23 Rate Blood Pressure 116/65 116/65 116/65 O2 Sat by Pulse 99 99 99 Oximetry 06/27/17 06/27/17 06/27/17 00:50 01:00 01:10 Temperature Pulse Rate 89 97 H 84 Pulse Rate [ From Monitor] Respiratory 20 16 21 Rate Blood Pressure 116/65 125/74 125/74 O2 Sat by Pulse 97 96 99 Oximetry 06/27/17 06/27/17 06/27/17 01:20 01:30 01:40 Temperature Pulse Rate 97 H 83 81 Pulse Rate [ From Monitor] Respiratory 21 21 20 Rate Blood Pressure 125/74 125/74 125/74 O2 Sat by Pulse 99 99 100 Oximetry 06/27/17 06/27/17 06/27/17 01:50 02:00 02:10 Temperature Pulse Rate 86 92 H 83 Pulse Rate [ From Monitor] Respiratory 21 21 20 Rate Blood Pressure 125/74 120/75 120/75 O2 Sat by Pulse 98 99 98 Oximetry 06/27/17 06/27/17 06/27/17 02:20 02:30 02:40 Temperature Pulse Rate 80 90 82 Pulse Rate [ From Monitor] Respiratory 21 19 19 Rate Blood Pressure 120/75 120/75 120/75 O2 Sat by Pulse 98 97 98 Oximetry 06/27/17 06/27/17 06/27/17 02:50 03:00 03:10 Temperature Pulse Rate 82 98 H 88 Pulse Rate [ From Monitor] Respiratory 20 19 21 Rate Blood Pressure 120/75 112/66 112/66 O2 Sat by Pulse 97 98 98 Oximetry 06/27/17 06/27/17 06/27/17 03:20 03:30 03:40 Temperature Pulse Rate 90 86 82 Pulse Rate [ From Monitor] Respiratory 18 20 18 Rate Blood Pressure 112/66 112/66 112/66 O2 Sat by Pulse 99 97 98 Oximetry 06/27/17 06/27/17 06/27/17 03:50 04:00 04:01 Temperature 98.0 F Pulse Rate 72 72 Pulse Rate [ 89 From Monitor] Respiratory 19 14 18 Rate Blood Pressure 112/66 102/68 O2 Sat by Pulse 98 99 100 Oximetry 06/27/17 06/27/17 06/27/17 04:10 04:20 04:30 Temperature Pulse Rate 70 77 77 Pulse Rate [ From Monitor] Respiratory 18 14 24 Rate Blood Pressure 102/68 112/66 112/66 O2 Sat by Pulse 98 99 100 Oximetry 06/27/17 06/27/17 06/27/17 04:40 04:50 05:00 Temperature Pulse Rate 80 69 82 Pulse Rate [ From Monitor] Respiratory 21 22 22 Rate Blood Pressure 112/66 112/66 106/64 O2 Sat by Pulse 100 98 96 Oximetry 06/27/17 06/27/17 06/27/17 05:10 05:20 05:30 Temperature Pulse Rate 81 71 84 Pulse Rate [ From Monitor] Respiratory 21 16 20 Rate Blood Pressure 106/64 106/64 106/64 O2 Sat by Pulse 95 97 94 Oximetry 06/27/17 06/27/17 06/27/17 05:40 05:50 06:00 Temperature Pulse Rate 79 77 90 Pulse Rate [ From Monitor] Respiratory 19 22 26 H Rate Blood Pressure 106/64 106/64 114/73 O2 Sat by Pulse 94 98 98 Oximetry 06/27/17 08:00 Temperature 98.4 F Pulse Rate Pulse Rate [ From Monitor] Respiratory Rate Blood Pressure O2 Sat by Pulse Oximetry General appearance: Present: no acute distress, well-nourished - Respiratory Respiratory effort: normal - Breasts Breasts: deferred - Cardiovascular Rhythm: regular Extremity abnormal: edema - Gastrointestinal General gastrointestinal: Present: soft, tender (Appriately), other (Bandage clean & dry) - Genitourinary Female genitourinary: other (patient with a chan under her with no blood present) - Integumentary Integumentary: clear, warm, dry - Neurologic Neurologic: moves all extremities - Psychiatric Psychiatric: appropriate mood/affect - Labs CBC & Chem 7: 06/27/17 06:33 06/27/17 04:23 Labs: Abnormal lab results 06/26/17 06/26/17 06/26/17 Range/Units 06:11 12:29 12:29 WBC 17.3 H (4.5-11.0) K/mm3 RBC 2.91 L (3.65-5.03) M/mm3 Hgb 8.8 L (10.1-14.3) gm/dl Hct 28.3 L D (30.3-42.9) % RDW 18.3 H (13.2-15.2) % Lymph % (Auto) (13.4-35.0) % Lymph # (1.2-5.4) K/mm3 Seg Neutrophils % (40.0-70.0) % Seg Neutrophils # (1.8-7.7) K/mm3 PT 16.5 H (12.2-14.9) Sec. INR 1.26 H (0.87-1.13) Sodium (137-145) mmol/L Potassium (3.6-5.0) mmol/L Chloride (98-107) mmol/L Carbon Dioxide (22-30) mmol/L BUN (7-17) mg/dL Creatinine (0.7-1.2) mg/dL Glucose (65-100) mg/dL Calcium (8.4-10.2) mg/dL Total Bilirubin (0.1-1.2) mg/dL ALT (7-56) units/L Total Protein (6.3-8.2) g/dL Albumin (3.9-5) g/dL Crossmatch Prewarmed See Detail 06/26/17 06/26/17 06/26/17 Range/Units 12:40 17:53 17:53 WBC (4.5-11.0) K/mm3 RBC 3.03 L (3.65-5.03) M/mm3 Hgb 9.1 L (10.1-14.3) gm/dl Hct 26.8 L (30.3-42.9) % RDW 17.2 H (13.2-15.2) % Lymph % (Auto) 10.4 L (13.4-35.0) % Lymph # 1.1 L (1.2-5.4) K/mm3 Seg Neutrophils % 83.8 H (40.0-70.0) % Seg Neutrophils # 8.9 H (1.8-7.7) K/mm3 PT (12.2-14.9) Sec. INR (0.87-1.13) Sodium (137-145) mmol/L Potassium (3.6-5.0) mmol/L Chloride 107.5 H 108.0 H (98-107) mmol/L Carbon Dioxide 12 L 18 L (22-30) mmol/L BUN 5 L 5 L (7-17) mg/dL Creatinine 0.5 L 0.5 L (0.7-1.2) mg/dL Glucose 164 H (65-100) mg/dL Calcium 7.0 L 7.3 L (8.4-10.2) mg/dL Total Bilirubin 1.40 H (0.1-1.2) mg/dL ALT 6 L (7-56) units/L Total Protein 5.2 L 5.4 L (6.3-8.2) g/dL Albumin 2.3 L 2.7 L (3.9-5) g/dL Crossmatch P[place]armed 06/27/17 06/27/17 06/27/17 Range/Units 04:23 04:23 06:33 WBC (4.5-11.0) K/mm3 RBC 2.64 L 2.83 L (3.65-5.03) M/mm3 Hgb 8.0 L 8.6 L (10.1-14.3) gm/dl Hct 23.4 L 25.2 L (30.3-42.9) % RDW 18.2 H 18.0 H (13.2-15.2) % Lymph % (Auto) (13.4-35.0) % Lymph # (1.2-5.4) K/mm3 Seg Neutrophils % 80.2 H 79.5 H (40.0-70.0) % Seg Neutrophils # (1.8-7.7) K/mm3 PT (12.2-14.9) Sec. INR (0.87-1.13) Sodium 136 L (137-145) mmol/L Potassium 3.5 L (3.6-5.0) mmol/L Chloride (98-107) mmol/L Carbon Dioxide 18 L (22-30) mmol/L BUN 3 L (7-17) mg/dL Creatinine 0.4 L (0.7-1.2) mg/dL Glucose (65-100) mg/dL Calcium 7.7 L (8.4-10.2) mg/dL Total Bilirubin (0.1-1.2) mg/dL ALT (7-56) units/L Total Protein 5.0 L (6.3-8.2) g/dL Albumin 2.2 L (3.9-5) g/dL Crossmatch P[place]armed
[2017-06-27] MEDS: PEPCID IV SCH ×2 (11:31→21:07)
[2017-06-27] MEDS ORDERED: Fluarix Quad 2017-2018(36 MOS+ IM ONE (12:00)
[2017-06-27 14:28] LABS: Hematocrit 24.4 % (30.3-42.9); Hemoglobin 8.2 gm/dl (10.1-14.3)
[2017-06-27 18:26] LABS: Hematocrit 25.5 % (30.3-42.9); Hemoglobin 8.3 gm/dl (10.1-14.3)
[2017-06-27] MEDS ORDERED: VISTARIL PO ONE (22:00)
[2017-06-27] MEDS ORDERED: HABITROL TD SCH (22:00)
[2017-06-28 00:42] LABS: Hemoglobin 7.6 gm/dl (10.1-14.3)
[2017-06-28] MEDS: NACL 0.9% 1000 ML 1,000 ML IV SCH (04:15)
[2017-06-28 06:05] LABS: Hematocrit 22.3 % (30.3-42.9); Hemoglobin 7.5 gm/dl (10.1-14.3)
[2017-06-28 08:20] LABS: Anion Gap 20 mmol/L; BUN/Creatinine Ratio 10; Blood Urea Nitrogen 4 mg/dL (7-17); Calcium 7.6 mg/dL (8.4-10.2); Carbon Dioxide 16 mmol/L (22-30); Chloride 109.5 mmol/L (98-107); Glucose 69 mg/dL (65-100); Potassium 3.5 mmol/L (3.6-5.0); Sodium 142 mmol/L (137-145)
[2017-06-28] MEDS: PEPCID IV SCH (09:30)
--- NOTE | 2017-06-28 11:31 | Progress Note ---
Assessment and Plan - Patient Problems (1) hemorrhage Current Visit: No Status: Acute Qualifiers: hemorrhage type: secondary hemorrhage Qualified Code( s): O72.2 - Delayed and secondary hemorrhage Plan to address problem: Patient's doing well. Serial hematocrits did show a slight decrease. Discussed with the patient transfusion additional unit packed red blood cells. Patient agrees to proceed. Exam reveals no evidence of active bleeding. (2) delivery delivered Current Visit: Yes Status: Acute Plan to address problem: Postoperative day #1. Patient without nausea vomiting. Patient tolerating advancing diet well Patient without fever. Will ambulate in halls. We will continue routine postoperative care. Infant is doing well. Will continue routine post operative care. Patient's postoperative hematocrit is 22.3. We'll transfer patient to mother-baby unit Subjective Date of service: 06/28/17 (I see no) Principal diagnosis: POD#2 C/S with PPH Interval history: Patient's doing well sitting up in chair patient tolerated liquid diet well. Patient desires discharge from the intensive care unit Objective - Constitutional Vitals: Vital Signs - 12hr 06/28/17 06/28/17 06/28/17 00:00 01:01 02:00 Temperature Pulse Rate 84 62 Respiratory 21 22 21 Rate Blood Pressure 112/69 122/71 O2 Sat by Pulse 96 96 97 Oximetry 06/28/17 06/28/17 06/28/17 02:01 03:01 03:41 Temperature 99.1 F Pulse Rate 74 71 Respiratory 20 18 Rate Blood Pressure 130/50 109/62 O2 Sat by Pulse 97 93 Oximetry 06/28/17 06/28/17 06/28/17 04:00 04:30 04:56 Temperature Pulse Rate 80 Respiratory 21 Rate Blood Pressure 112/69 O2 Sat by Pulse 94 97 97 Oximetry 06/28/17 06/28/17 06/28/17 05:00 06:00 07:01 Temperature Pulse Rate 83 77 134 H Respiratory 20 24 28 H Rate Blood Pressure 111/68 109/58 109/58 O2 Sat by Pulse 96 97 97 Oximetry 06/28/17 08:00 Temperature 98.6 F Pulse Rate 79 Respiratory 21 Rate Blood Pressure 130/76 O2 Sat by Pulse 97 Oximetry General appearance: Present: no acute distress - Respiratory Respiratory effort: normal - Breasts Breasts: deferred - Cardiovascular Rhythm: regular Extremities: pulses intact Extremity abnormal: edema - Gastrointestinal General gastrointestinal: Present: soft, tender (appropriately), distended ( slightly), other (bandages clean and dry) Rectal Exam: deferred - Genitourinary Female genitourinary: deferred - Integumentary Integumentary: clear, warm, dry - Psychiatric Psychiatric: memory intact, appropriate mood/affect, intact judgment & insight - Labs CBC & Chem 7: 06/28/17 05:38 06/28/17 06:46 Labs: Abnormal lab results 06/26/17 06/27/17 06/27/17 Range/Units 06:11 13:24 17:47 Hgb 8.2 L 8.3 L (10.1-14.3) gm/dl Hct 24.4 L 25.5 L (30.3-42.9) % Potassium (3.6-5.0) mmol/L Chloride (98-107) mmol/L Carbon Dioxide (22-30) mmol/L BUN (7-17) mg/dL Creatinine (0.7-1.2) mg/dL Calcium (8.4-10.2) mg/dL Crossmatch P[place]armed See Detail 06/28/17 06/28/17 06/28/17 Range/Units 00:18 05:38 06:46 Hgb 7.6 L 7.5 L (10.1-14.3) gm/dl Hct 23.0 L 22.3 L (30.3-42.9) % Potassium 3.5 L (3.6-5.0) mmol/L Chloride 109.5 H (98-107) mmol/L Carbon Dioxide 16 L (22-30) mmol/L BUN 4 L (7-17) mg/dL Creatinine 0.4 L (0.7-1.2) mg/dL Calcium 7.6 L (8.4-10.2) mg/dL Crossmatch P[place]armed
[2017-06-28] MEDS ORDERED: LANSINOH TP PRN (13:29)
[2017-06-28] MEDS ORDERED: TUCKS PAD TP PRN (13:29)
[2017-06-28] MEDS ORDERED: FEOSOL PO SCH (13:29)
[2017-06-28] MEDS ORDERED: D5LR 1,000 ML IV SCH (13:29)
[2017-06-28] MEDS ORDERED: NARCAN 0.4 MG/1 ML IV PRN (13:29)
[2017-06-28] MEDS ORDERED: NACL 0.9% 500 ML 500 ML IV ONE ×2 (14:34→19:18)
[2017-06-28] MEDS ORDERED: NORCO 5/325 PO PRN (15:46)
[2017-06-28] MEDS ORDERED: TYLENOL PO PRN (19:16)
[2017-06-28] MEDS ORDERED: BENADRYL PO PRN (19:17)
--- NOTE | 2017-06-28 20:36 | Discharge Summary ---
Providers - Providers Date of Admission: 06/26/17 05:45 Date of discharge: 06/29/17 Attending physician: ABEBE TIWARI 06/26/17 11:04 Consult to [employer] [CONS] Routine Reason For Exam: Primary care physician: ABEBE TIWARI Hospitalization Reason for admission: section Delivery: Procedure: section Other procedures: other (blood transfusions admission to the ICU) complications: transfusion, other ( hemorrhage) Discharge diagnosis: IUP at term delivered, other ( hemorrhage) [facility] baby: male Hospital course: Patient was admitted and underwent the scheduled repeat section. Postoperatively the patient's care was Located hemorrhage details in the notes. The patient due to persistent bleeding despite given medications including Hemabate the patient's hypotension and was noted to doctor Eladio's note decision was made to observe the patient in intensive care unit due to massive hemorrhage. Patient received 4 units of packed red blood cells and 2 units of FFP. Patient's H&H did finally stabilized while in the ICU will have a hemoglobin of 7.3 and was transferred to floor with plans transfuse one additional unit. Patient was ambulating and tolerating regular diet was afebrile throughout her stay. Patient was very anxious to go home for the holidays so much so that on the transfusion of the additional unit the patient decided she wanted to leave the hospital patient was discharge. Condition at discharge: Stable Disposition: DC-01 TO HOME OR SELFCARE - Discharge Diagnoses (1) hemorrhage Status: Acute Qualifiers: hemorrhage type: secondary hemorrhage Qualified Code( s): O72.2 - Delayed and secondary hemorrhage (2) delivery delivered Status: Chronic (3) Uterine atony, , current hospitalization Status: Resolved Plan - Discharge Medications Prescriptions: Lidocain2.5%/Prilocai2.5% [Emla] 5 gm TP ONCE #1 tube Ibuprofen [Motrin 800 MG tab] 800 mg PO TID PRN #30 tablet PRN Reason: Pain oxyCODONE /ACETAMINOPHEN [Percocet 5/325 mg] 1 - 2 tab PO Q4HR PRN #30 tablet PRN Reason: Pain - Provider Discharge Summary Activity: routine, no sex for 6 weeks, no heavy lifting 4 weeks, no strenuous exercise, other Diet: routine Instructions: routine Additional instructions: [] Smoking cessation referral if applicable(refer to patient education folder for contact #) [] Refer to [facility] Booklet Call your doctor immediately for: * Fever > 100.5 * Heavy vaginal bleeding ( >1 pad per hour) * Severe persistent headache * Shortness of breath * Reddened, hot, painful area to leg or breast * Drainage or odor from incision. * Keep incision clean and dry at all times and follow doctor's instructions regarding bathing/showering Patient's keep her scheduled postoperative visit - Follow up plan Follow up: ABEBE TIWARI MD [Primary Care Provider] - 7 Days Forms: [facility] Discharge Summary
[2017-06-29 00:46] VITALS: BP 135/94
== END 2017-06-29 00:20 | disposition home or self-care (01) | DRG 765 ==
LOC: APU 05:45 → OB 11:28 → CC1 12:33 → OB 06-28 11:48
PROVIDERS: ADMIT Obstetrics & Gynecology; ATTEND Obstetrics & Gynecology
PROC: 10D00Z1 Extraction of Products of Conception, Low, Open Approach (ICD-10-PCS; principal; 2017-06-26)
PROC: 30233N1 Transfusion of Nonautologous Red Blood Cells into Peripheral Vein, Percutaneous Approach (ICD-10-PCS; 2017-06-26)
PROC: 30233L1 Transfusion of Nonautologous Fresh Plasma into Peripheral Vein, Percutaneous Approach (ICD-10-PCS; 2017-06-26)
PROC: 30233K1 Transfusion of Nonautologous Frozen Plasma into Peripheral Vein, Percutaneous Approach (ICD-10-PCS; 2017-06-26)
PROC: 30233M1 Transfusion of Nonautologous Plasma Cryoprecipitate into Peripheral Vein, Percutaneous Approach (ICD-10-PCS; 2017-06-26)
PROC: 3E0234Z Introduction of Serum, Toxoid and Vaccine into Muscle, Percutaneous Approach (ICD-10-PCS; 2017-06-27)
DX: O34.211 Maternal care for low transverse scar from previous cesarean delivery (principal); O72.1 Other immediate postpartum hemorrhage; O72.2 Delayed and secondary postpartum hemorrhage; Z3A.39 39 weeks gestation of pregnancy; Z37.0 Single live birth; Z23 Encounter for immunization; F41.9 Anxiety disorder, unspecified; O99.344 Other mental disorders complicating childbirth; I95.9 Hypotension, unspecified
CPT/HCPCS: 36415; 80048; 80053; 85014; 85018; 85025; 85027; 85610; 85730; 86592; 86850; 86870; 86900; 86901; 87040; 87086; 90686; C1765; C9250; J0690; J1200; J2210; J2270; J2370; J2405; J2590; J2765; J7030; J7040; J7120; P9012; P9016; P9017; Q0177